=== PATIENT | male | born 1995 | race Caucasian/White ===

== ENCOUNTER 2018-10-21 13:11 | Emergency (ER) | payer OTHER ==
[~2018-10-21] VITALS: Ht 188 cm; Wt 68.8 kg
[2018-10-21 13:19] VITALS: Ht 188 cm; Wt 68.8 kg
[2018-10-21] MEDS ORDERED: SOD CHLORIDE 0.9% 1,000 ML IV STA (15:40)
--- NOTE | 2018-10-21 16:27 | PSY ---
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 MD spoke with pt. He admits to using heroin and methamphetamine and came to ED due to feeling very paranoid and also feeling withdrawal. Was vague about SI. Says that it "crossed my mind" last night but would not have acted on it and does not feel that way now. 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 center for his "meth psychosis." Past Psych Hx: denies ho suicide attempts or admits PMHx: hep c nkda Meds not taking MSE: casually groomed, mostly cooperative, slightly decreased prosody of speech dysthymic, restricted affect, somewhat vague, denies si, denies avh, impaired reliability and insight Imp: 23 yo male with substance use disorder and psychosis [facility]ox [facility] if [facility] report grave disability or danger to self recommend 5150, otherwise, if not, he could be sent back there if they have 24 hour monitoring For moderate agitation Zyprexa 5mg po prn For severe agitation chlorpromazine 25mg im prn Psychiatric Objective Eval Mental Status Examination: Laboratory Results Laboratory Tests Test 10/21/18 15:03 White Blood Count 8.3 10^3/ul Red Blood Count 4.33 10^6/ul Hemoglobin 13.6 g/dl Hematocrit 39.3 % Mean Corpuscular Volume 90.8 fl Mean Corpuscular Hemoglobin 31.4 pg Mean Corpuscular Hemoglobin Concent 34.6 g/dl Red Cell Distribution Width 11.7 % Platelet Count 364 10^3/UL Mean Platelet Volume 8.5 fl Immature Granulocytes % 0.200 % Neutrophils % 65.4 % Lymphocytes % 26.1 % Monocytes % 7.6 % Eosinophils % 0.2 % Basophils % 0.5 % Nucleated Red Blood Cells % 0.0 /100WBC Immature Granulocytes # 0.020 10^3/ul Neutrophils # 5.5 10^3/ul Lymphocytes # 2.2 10^3/ul Monocytes # 0.6 10^3/ul Eosinophils # 0.0 10^3/ul Basophils # 0.0 10^3/ul Nucleated Red Blood Cells # 0.0 10^3/ul Prothrombin Time 13.5 Sec Prothrombin Time Ratio 1.1 INR International Normalized Ratio 1.02 Activated Partial Thromboplast Time 29.9 Sec Sodium Level 140 mmol/L Potassium Level 4.0 mmol/L Chloride Level 101 mmol/L Carbon Dioxide Level 27 mmol/L Anion Gap 12 Blood Urea Nitrogen 14 mg/dl Creatinine 0.70 mg/dl Est Glomerular Filtrat Rate mL/min > 60 mL/min Glucose Level 105 mg/dl Calcium Level 10.2 mg/dl Total Bilirubin 0.9 mg/dl Direct Bilirubin 0.00 mg/dl Indirect Bilirubin 0.9 mg/dl Aspartate Amino Transf (AST/SGOT) 62 IU/L Alanine Aminotransferase (ALT/SGPT) 117 IU/L Alkaline Phosphatase 86 IU/L Total Protein 8.5 g/dl Albumin 5.1 g/dl Globulin 3.40 g/dl Albumin/Globulin Ratio 1.50 Salicylates Level < 1.0 mg/dl Acetaminophen Level < 10.0 ug/ml Ethyl Alcohol Level < 10.0 mg/dl Assessment and Plan Recommendation/Plan Multiple antipsychotics: No Discharge Disposition: Psychiatric inpatient Legal Status: Voluntary CINTHYAEBONI DIORMariela Oct 21, 2018 16:27
[2018-10-21] MEDS ORDERED: LORAZEPAM 1 MG TAB PO ONE ×2 (17:00)
[2018-10-21 18:14] VITALS: BP 120/71; PULSE 98; RESP 18
--- NOTE | 2018-10-21 19:52 | ERD ---
ER Documentation Chief Complaint Chief Complaint PT USED METH IV 3 DAYS AGO AND WANTS TO BE EVALUATED BY MD CORTÉS This is a 23-year-old male who is currently in a drug rehab facility but states he has not been able to sleep for the past 2 days. Indicated his last use of IV heroin and amphetamines 2 days prior to arrival. He denies any nausea vomiting or abdominal pain. He states he is hearing voices. He denies any suicidal thou ghts or ideations. He denies a headache. He denies any chest pain. ROS All systems reviewed and are negative except as per history of present illness. Allergies Allergies: Coded Allergies: No Known Allergy (Unverified , 10/21/18) PMhx/Soc Medical and Surgical Hx: pt denies Medical Hx, pt denies Surgical Hx Hx Alcohol Use: No Hx Substance Use: Yes (injected meth 2 days ago last) Hx Tobacco Use: No Smoking Status: Never smoker Physical Exam Vitals Vital Signs Date Temp Pulse Resp B/P (MAP) Pulse Ox O2 O2 Flow FiO2 Time Delivery Rate 10/21/18 98 18 120/71 99 Room Air 18:14 (87) 10/21/18 98.6 88 18 137/91 100 13:19 (106) Physical Exam Constitutional:Well-developed. Well-nourished. HEENT:Normocephalic. Atraumatic.Pupils were equal round reactive to light. Moist mucous membranes.No tonsillar exudates. Neck: No nuchal rigidity. No lymphadenopathy. No posterior cervical spine tenderness or step-offs. Respiratory: Not using accessory muscles of respiration.Lungs were clear to auscultation bilaterally. No rhonchi. No rales. No wheezing. Cardiovascular: Regular rate regular rhythm.No murmurs. No rubs were appreciated.S1, S2 normal. Distal pulses are palpable 2+ bilaterally. GI: Abdomen was soft. Nontender. Non Distended. No pulsatile abdominal masses or bruits. No rebound. No guarding. Bowel sounds were present and normal. Muscle skeletal: Full range of motion of both the upper and lower extremities bilaterally.Normal muscle tone.No assymetrical calf tenderness or swelling. Skin: No petechia, no purpura. No lesions on the palms or the soles of the feet. No maculopapular rash. NEURO: Patient was alert, awake, orientated x3.No facial droop. Gait observed and normal with no ataxia.Speech had regular rate and rhythm. No focal neurological deficits. PSYCH: Patient denies any suicidal homicidal thoughts or ideations. Patient was feeling very anxious and unable to find a comfortable position but answer questions properly. Patient was experiencing auditory hallucinations but no visual tactile hallucinations. Result Diagram: 10/21/18 1503 10/21/18 1503 Results 24 hrs Laboratory Tests Test 10/21/18 15:03 White Blood Count 8.3 10^3/ul Red Blood Count 4.33 10^6/ul Hemoglobin 13.6 g/dl Hematocrit 39.3 % Mean Corpuscular Volume 90.8 fl Mean Corpuscular Hemoglobin 31.4 pg Mean Corpuscular Hemoglobin Concent 34.6 g/dl Red Cell Distribution Width 11.7 % Platelet Count 364 10^3/UL Mean Platelet Volume 8.5 fl Immature Granulocytes % 0.200 % Neutrophils % 65.4 % Lymphocytes % 26.1 % Monocytes % 7.6 % Eosinophils % 0.2 % Basophils % 0.5 % Nucleated Red Blood Cells % 0.0 /100WBC Immature Granulocytes # 0.020 10^3/ul Neutrophils # 5.5 10^3/ul Lymphocytes # 2.2 10^3/ul Monocytes # 0.6 10^3/ul Eosinophils # 0.0 10^3/ul Basophils # 0.0 10^3/ul Nucleated Red Blood Cells # 0.0 10^3/ul Prothrombin Time 13.5 Sec Prothrombin Time Ratio 1.1 INR International Normalized Ratio 1.02 Activated Partial Thromboplast Time 29.9 Sec Sodium Level 140 mmol/L Potassium Level 4.0 mmol/L Chloride Level 101 mmol/L Carbon Dioxide Level 27 mmol/L Anion Gap 12 Blood Urea Nitrogen 14 mg/dl Creatinine 0.70 mg/dl Est Glomerular Filtrat Rate mL/min > 60 mL/min Glucose Level 105 mg/dl Calcium Level 10.2 mg/dl Total Bilirubin 0.9 mg/dl Direct Bilirubin 0.00 mg/dl Indirect Bilirubin 0.9 mg/dl Aspartate Amino Transf (AST/SGOT) 62 IU/L Alanine Aminotransferase (ALT/SGPT) 117 IU/L Alkaline Phosphatase 86 IU/L Total Protein 8.5 g/dl Albumin 5.1 g/dl Globulin 3.40 g/dl Albumin/Globulin Ratio 1.50 Salicylates Level < 1.0 mg/dl Acetaminophen Level < 10.0 ug/ml Ethyl Alcohol Level < 10.0 mg/dl Current Medications Medications Dose Sig/Hari Start Time Status Last (Trade) Ordered Route PRN Stop Time Admin Dose Reason Admin Sodium 1,000 ml @ Q1H STAT 10/21/18 DC Chloride 1,000 mls/hr IV 15:40 10/21/18 16:39 Lorazepam 2 mg ONCE ONCE 10/21/18 DC 10/21/18 (Ativan) PO 17:00 17:17 10/21/18 17:09 Lorazepam 2 mg ONCE ONCE 10/21/18 DC (Ativan) PO 17:00 10/21/18 17:01 Procedures/MDM This is a 23-year-old male that presented to the emergency department with physical exam findings concerning for opiate withdrawal amphetamine withdrawal. The patient was refusing IV access and ancillary laboratory work showed no severe electrolyte abnormalities. He underwent a telemetry psych evaluation which indicated that if the patient is unable to be taken back to his rehab facility a 5150 would be recommended. However his sponsor was present I spoke with the liner helper of the drug rehab facility. We administered 2 mg of Ativan p.o. and the patient had significant improvement of his symptoms. He was monitored for 1 hour after receiving the Ativan and given that his symptoms have resolved the drug rehab facility felt comfortable taking the patient home as they do have 24-hour monitoring. The patient was discharged home in fair condition. They were instructed to return to the emergency department at any time if there was any worsening of their condition. The patient stated they would follow up with their PCP in the next 24-48 hours to initiate a suitable medication regimen under the care of their PCP as well as to allow their PCP to monitor any drug reactions. The patient was discharged home with prescriptions after they gave informed consent to the new medication. They were also fully informed by myself on the adverse effects and adverse drug interactions in order to provide adequate safeguards to prevent possible adverse reactions to medications. 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
== END 2018-10-21 18:12 | disposition home or self-care (01) ==
LOC: E/R 13:11
DX: F11.23 Opioid dependence with withdrawal (principal); F15.951 Other stimulant use, unspecified with stimulant-induced psychotic disorder with hallucinations
CPT/HCPCS: 36415; 80053; 80307; 85025; 85610; 85730; 99283; J7030